=== PATIENT | female | born 1995 | race Caucasian/White ===

== ENCOUNTER 2019-09-21 11:22 | Emergency (ER) | payer MEDICAID, OTHER ==
[2019-09-21 12:26] VITALS: BP 117/88
--- NOTE | 2019-09-21 12:55 | UC ---
Ear Complaint HPI - HPI Summary HPI Summary: 24 yo female ill x 2 weeks nasal congestion post nasal drip sinu pressure sore throat now with mod left ear pain and decreased hearing no f/c - History of Current Complaint Chief Complaint: UCGeneralIllness Stated Complaint: EAR COMPLAINT, SORE THROAT Time Seen by Provider: 09/21/19 12:45 Hx Obtained From: Patient Hx Last Menstrual Period: 08/28/19 Onset/Duration: Gradual Onset, Lasting Weeks, Worse Since - days Severity Initially: Moderate Pain Intensity: 7 Pain Scale Used: 0-10 Numeric Associated Signs/Symptoms: Positive: Hearing Loss, URI Symptoms - Allergies/Home Medications Allergies/Adverse Reactions: Allergies Allergy/AdvReac Type Severity Reaction Status Date / Time amoxicillin Allergy Hives Verified 09/21/19 12:26 Home Medications: Home Medications Cholecalciferol (Vitamin D3) [Vitamin D3] 2,000 unit PO DAILY 09/21/19 [History Confirmed 09/21/19] Fluoxetine (Nf) Cap [Fluoxetine HCl] 60 mg PO DAILY 09/21/19 [History Confirmed 09/21/19] Propranolol HCl 10 mg PO DAILY 09/21/19 [History Confirmed 09/21/19] PMH/Surg Hx/FS Hx/Imm Hx Previously Healthy: Yes - Surgical History Surgical History: None - Family History Known Family History: Positive: Cardiac Disease, Hypertension, Diabetes - Social History Alcohol Use: Rare Substance Use Type: Marijuana Substance Use Comment - 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 Used: daily Smoking Status (MU): Never Smoked Tobacco Review of Systems All Other Systems Reviewed And Are Negative: Yes Constitutional: Positive: Negative Skin: Positive: Negative Eyes: Positive: Negative ENT: Positive: Sore Throat, Ear Ache, Nasal Discharge, Sinus Congestion, Sinus Pain/Tenderness Respiratory: Positive: Cough Cardiovascular: Positive: Negative Gastrointestinal: Positive: Negative Genitourinary: Positive: Negative Motor: Positive: Negative Neurovascular: Positive: Negative Musculoskeletal: Positive: Negative Neurological: Positive: Negative Psychological: Positive: Negative Physical Exam Triage Information Reviewed: Yes Appearance: Well-Appearing, No Pain Distress, Well-Nourished Vital Signs: Initial Vital Signs Temp 98 F 09/21/19 12:23 Pulse 69 09/21/19 12:23 Resp 16 09/21/19 12:23 BP 117/88 09/21/19 12:23 Pulse Ox 98 09/21/19 12:23 Vital Signs Reviewed: Yes Eyes: Positive: Conjunctiva Clear ENT: Positive: TM bulging - L, TM dull - L, TM red - L. Negative: Hearing grossly normal - decreased L, Nasal congestion, Nasal drainage, Tonsillar swelling, Tonsillar exudate, Trismus, Muffled voice, Hoarse voice Dental Exam: Normal Neck: Positive: Supple Respiratory: Positive: Lungs clear, Normal breath sounds, No respiratory distress, No accessory muscle use Cardiovascular: Positive: RRR, No Murmur Musculoskeletal: Positive: ROM Intact, No Edema Neurological: Positive: Alert Psychological Exam: Normal Skin Exam: Normal Ear Complaint Course/Dx - Differential Dx/Diagnosis Provider Diagnosis: Left otitis media, Rhinosinusitis Discharge ED - Sign-Out/Discharge Documenting (check all that apply): Patient Departure All imaging exams completed and their final reports reviewed: No Studies - Discharge Plan Condition: Stable Disposition: HOME Prescriptions: Azithromycin TAB* [Zithromax TAB*] 250 mg PO DAILY #6 tab Fluticasone NASAL SPRAY 50MCG* [Flonase NASAL SPRAY 50MCG*] 2 spray BOTH NARES BID #1 btl Patient Education Materials: Ear Infection (ED), Rhinosinusitis (ED) Referrals: Dwight Trejo MD [Primary Care Provider] - 4 Days (if not improving) - Billing Disposition and Condition Condition: STABLE Disposition: Home
== END 2019-09-21 13:02 | disposition home or self-care (01) ==
LOC: UCCORT 11:22
DX: H66.92 Otitis media, unspecified, left ear (principal); J32.9 Chronic sinusitis, unspecified; Z88.0 Allergy status to penicillin
CPT/HCPCS: 99202; G0463